=== PATIENT | female | born 1935 | race Hispanic/Latino ===

== ENCOUNTER 2016-09-02 04:11 | Inpatient (IN) | payer MEDICARE, MEDICAID ==
--- NOTE | 2016-09-02 04:18 | C.PDOC ---
History Of Present Illness Patient [facility] for the evaluation of blood in her stool. Patient reports intermittent abdominal pain for the last 2 days. Patient denies any fever, chills, nausea, vomiting, or any other complaints. Time Seen by Provider: 09/02/16 04:17 History Per: Patient History/Exam Limitations: no limitations Onset/Duration Of Symptoms: Days (2), Intermittent Episodes Current Symptoms Are (Timing): Still Present Number Of Bleeding Episodes: Unknown Amount of Blood Loss: Medium Severity: Moderate Pain Scale Rating Of: 4 Quality Of Discomfort: "Pain" Associated Symptoms: Other (Blood in stool). denies: Nausea, Vomiting Modifying Factors: None Recent travel outside of the [place]: No Past Medical History Reviewed: Historical Data, Nursing Documentation, Vital Signs Vital Signs: Last Vital Signs Temp 98.8 F 09/02/16 04:19 Pulse 94 H 09/02/16 06:12 Resp 16 09/02/16 06:12 BP 124/78 09/02/16 06:12 Pulse Ox 98 09/02/16 06:12 Family History: States: No Known Family Hx Review Of Systems Constitutional: Negative for: Fever, Chills Cardiovascular: Negative for: Chest Pain Respiratory: Negative for: Shortness of Breath Gastrointestinal: Positive for: Abdominal Pain, Hematochezia. Negative for: Nausea, Vomiting Musculoskeletal: Negative for: Back Pain Skin: Negative for: Rash, Lesions, Jaundice Neurological: Negative for: Headache, Dizziness Psych: Negative for: Anxiety Physical Exam - Physical Exam Appears: Non-toxic Skin: Warm, Dry, Pale Head: Atraumatic Oral Mucosa: Moist Neck: Normal ROM, No Midline Cervical Tenderness, No Paracervical Tenderness, Supple Cardiovascular: Rhythm Regular Respiratory: No Rales, No Rhonchi, No Wheezing Gastrointestinal/Abdominal: Soft, No Tenderness, No Guarding, No Rebound Rectal: Blood Streaked Stool (Bright red blood mixed in with loose stool) Extremity: Normal ROM, No Tenderness, No Calf Tenderness, No Swelling Extremity: Bilateral: Atraumatic Neurological/Psych: Oriented x3, Normal Speech, Normal Cognition Gait: Unable To Assess ED Course And Treatment - Laboratory Results Result Diagrams: 09/02/16 04:52 09/02/16 04:52 ECG: Interpreted By Me, Viewed By Me ECG Rhythm: Sinus Rhythm (98), Nonspecific Changes O2 Sat by Pulse Oximetry: 95 Pulse Ox Interpretation: Normal - Radiology CXR: Interpreted by Me, Viewed By Me CXR Interpretation: Yes: Other (fibrotic changes). No: Infiltrates, Fracture, Pnemothorax Progress Note: blood work, ivf, type and screen, protonix Disposition Counseled Patient/Family Regarding: Studies Performed, Diagnosis - Disposition Disposition Time: 04:18 Condition: FAIR - POA Present On Arrival: Poor Glycemic Control - Clinical Impression Clinical Impression: Rectal bleeding - Scribe Statement The provider has reviewed the documentation as recorded by the Chelyibchapito Aguirre Provider Scribe Attestation: All medical record entries made by the Scribe were at my direction and personally dictated by me. I have reviewed the chart and agree that the record accurately reflects my personal performance of the history, physical exam, medical decision making, and the department course for this patient. I have also personally directed, reviewed, and agree with the discharge instructions and disposition. Physician Patient Turnover Patient Signed Over To: Tiki Tinajero Handoff Comments: pending admision
[2016-09-02] MEDS ORDERED: Sodium Chloride 0.9% 1,000 ML IV ONE (04:43)
[2016-09-02] MEDS ORDERED: Pantoprazole 80 MG in Sodium Chloride 0.9% 100 ML IV STA (04:43)
[2016-09-02 05:00] LABS: BASO % 0.3 % (0.0-2.0); EOS # 0.1 K/uL (0.0-0.7); HEMATOCRIT 41.2 % (34.0-47.0); LYMPH # 3.2 K/uL (1.0-4.3); LYMPH % 29.2 % (20.0-40.0); MEAN CELL VOLUME 88.4 fL (81.0-99.0); MEAN CORPUSCULAR HEMOGLOBIN 29.4 pg (27.0-31.0); MEAN CORPUSCULAR HGB CONC 33.3 g/dL (33.0-37.0); MEAN PLATELET VOLUME 9.3 fL (7.2-11.7); MONO # 1.3 K/uL (0.0-0.8); MONO % 11.3 % (0.0-10.0); RED CELL DISTRIBUTION WIDTH 13.1 % (11.5-14.5); WHITE BLOOD COUNT 11.1 K/uL (4.8-10.8)
[2016-09-02 05:03] LABS: INR 1.1
[2016-09-02 05:05] LABS: CHLORIDE 98 mmol/L (98-107); POTASSIUM 3.6 mmol/L (3.6-5.2); SODIUM 136 mmol/L (132-148)
[2016-09-02 05:07] LABS: BILIRUBIN,TOTAL 0.8 mg/dL (0.2-1.3); GFR AFRICAN-AMERICAN > 60
[2016-09-02 05:08] LABS: ALB/GLOB RATIO 1.2 (1.0-2.1); ALKALINE PHOSPHATASE 70 U/L (38-126); ALT/SGPT 15 U/L (9-52); AST/SGOT 19 U/L (14-36); BLOOD UREA NITROGEN 24 mg/dL (7-17); CALCIUM 9.3 mg/dl (8.6-10.4); CARBON DIOXIDE 25 mmol/L (22-30); GLUCOSE,RANDOM 106 mg/dL (65-105); TOTAL PROTEIN 7.2 g/dL (6.3-8.3)
[2016-09-02] MEDS ORDERED: Sodium Chloride 0.9% 1,000 ML ONE (05:23)
[2016-09-02] MEDS ORDERED: Iohexol 240 (50 ml) PO ONE (07:50)
[2016-09-02] MEDS ORDERED: Iohexol 240 (50 ml) ONE (08:03)
[2016-09-02 08:21] LABS: RBC URINE 12 /hpf (0-3); URINE BACTERIA RARE (<OCC); URINE BILIRUBIN NEGATIVE (NEGATIVE); URINE BLOOD 1+ (NEGATIVE); URINE COLOR Amber (YELLOW); URINE GLUCOSE (UA) NORMAL (Normal); URINE KETONE NEGATIVE (NEGATIVE); URINE LEUKOCYTE ESTERASE TRACE Leu/uL (Negative); URINE PROTEIN NEGATIVE (NEGATIVE); URINE UROBILINOGEN NORMAL mg/dL (0.2-1.0); WBC URINE 7 /hpf (0-5)
--- NOTE | 2016-09-02 08:31 | RAD ---
PROCEDURE: CHEST RADIOGRAPH, 1 VIEW HISTORY: GI Bleeding COMPARISON: None available. FINDINGS: LUNGS: Biapical pleural thickening with upper lobe granulomatous changes. Chronic interstitial lung markings. Small nodular density in the right hilar region may represent vessel on end. PLEURA: No pneumothorax or pleural fluid seen. CARDIOVASCULAR: Normal. OSSEOUS STRUCTURES: No significant abnormalities. VISUALIZED UPPER ABDOMEN: Normal. OTHER FINDINGS: None. IMPRESSION: Biapical pleural thickening with upper lobe granulomatous changes. Chronic interstitial lung markings. Small nodular density in the right hilar region may represent vessel on end.
[2016-09-02 08:35] LABS: HEMATOCRIT 40.7 % (34.0-47.0); MEAN CELL VOLUME 88.8 fL (81.0-99.0); MEAN CORPUSCULAR HEMOGLOBIN 29.3 pg (27.0-31.0); MEAN PLATELET VOLUME 9.1 fL (7.2-11.7); RED CELL DISTRIBUTION WIDTH 13.1 % (11.5-14.5); WHITE BLOOD COUNT 9.9 K/uL (4.8-10.8)
[2016-09-02] MEDS ORDERED: Iodixanol 320 MG/ML 100 ML BOTTLE IV ONE (09:17)
[2016-09-02] MEDS ORDERED: Ciprofloxacin 400mg/200ml D5W 200 ML IV STA (10:22)
--- NOTE | 2016-09-02 10:22 | CT ---
PROCEDURE: CT Abdomen and Pelvis with contrast HISTORY: GI BLEED COMPARISON: None. TECHNIQUE: Contrast dose: 100 mL. Radiation dose: Total exam DLP = 301.44 mGy-cm. This CT exam was performed using one or more of the following dose reduction techniques: Automated exposure control, adjustment of the mA and/or kV according to patient size, and/or use of iterative reconstruction technique. The study is nondiagnostic for evaluation of gastrointestinal hemorrhage due to administration of oral contrast. FINDINGS: LOWER THORAX: 1.5 millimeter nodule in the peripheral aspect of the right middle lobe (series 5, image 9.) The heart is not significantly enlarged. Coronary arterial calcifications noted. No significant pericardial effusion. LIVER: Liver is grossly unremarkable. GALLBLADDER AND BILE DUCTS: Gallbladder is unremarkable. The distal common bile duct measures up to 7.5 millimeters. PANCREAS: No definite pancreatic mass is identified. However, the pancreatic duct is dilated measuring up to 9 millimeters near the pancreatic head. No obvious pancreatic head mass identified in this limited evaluation. SPLEEN: Unremarkable. ADRENALS: Unremarkable. No mass. KIDNEYS AND URETERS: Partially exophytic hypodense structure in the lower pole of the left kidney measuring approximately 2.4 x 2.7 x 2.5 centimeters, likely cyst. Other sub centimeter hypodensities noted in the superior pole of the left kidney which could represent small cysts although they remain suboptimally evaluated. Punctate calcifications in the superior pole of the right kidney could be nonobstructing calculi. VASCULATURE: Scattered atherosclerotic calcification throughout the abdominal aorta and its main branches. No abdominal aortic aneurysm. BOWEL: No bowel obstruction identified. Oral contrast is seen in the distal small bowel at the time of evaluation. Liquid stool is seen in the rectum and in the sigmoid colon. There is marked mural thickening involving the descending, sigmoid core colons. Marked mural thickening also noted involving the rectum. This could represent colitis of infectious or inflammatory etiology. However, ischemic etiologies cannot be entirely excluded. APPENDIX: Normal appendix. PERITONEUM: No significant free fluid. LYMPH NODES: No significantly enlarged lymph nodes identified. BLADDER: Layering high density material seen in the gallbladder likely IV contrast. REPRODUCTIVE: Calcifications in the uterus likely calcified fibroids. No suspicious adnexal lesions. Please note that evaluation of gynecologic organs is not optimal on CT imaging. BONES: Generalized severe osteopenia. Orthopedic hardware in the left hip. OTHER FINDINGS: None. IMPRESSION: Findings suspicious for long segment colitis involving the descending, sigmoid colon and the rectum. Liquid stool seen in the rectum and the sigmoid colon. Colitis could be of infectious/ inflammatory etiologies. However, underlying ischemic etiology cannot be entirely excluded. Presumed cysts in the kidneys. No hydronephrosis or hydroureter. 1.5 centimeter nodule in the right middle lobe likely impacted small airway. Follow-up should be obtained as per guidelines. Guidelines by the Fleischner society (radiology 2005; 237:395-400) suggests that in patients with low risk for lung cancer, nodules from 5 mm to 6 mm in diameter should have follow-up in approximately 12 months. In patients with high-risk, such as those were smokers, follow-up is recommended in 6 months. Patients with a known malignancy or risk for metastases should receive 3 month follow-up. Dilatation of the pancreatic duct near the pancreatic head duct to 9 millimeters. Although no definite pancreatic head mass identified. , please note that this is a suboptimal evaluation of pancreatic masses. Follow-up with MRCP/ERCP should be obtained. Discussed with Dr. Tinajero at approximately 10:25 a.m. on 09/02/2016.
[2016-09-02] MEDS ORDERED: Ciprofloxacin 400mg/200ml D5W 200 ML IVPB ONE (10:29)
[2016-09-02] MEDS ORDERED: metroNIDAZOLE IV 500 mg/100 ml 100 ML IV SCH (10:30)
[2016-09-02] MEDS ORDERED: metroNIDAZOLE IV 500 mg/100 ml 100 ML ONE (10:30)
[2016-09-02 10:53] LABS: VENOUS BLOOD GAS BASE EXCESS 0.3 mmol/L (0.0-2.0); VENOUS BLOOD GAS PCO2 42 mmHg (40-60); VENOUS BLOOD PH 7.39 (7.32-7.43)
--- NOTE | 2016-09-02 12:14 | CP.PCM.CON ---
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 The patient is alert to person but not time/place. Her account of events is consistent with [place] records. The patient states that she suddenly developed rectal bleeding with stooling 2 days prior to admission. Since, she has had frequent loose/liquid stools that are either dark black or maroon. She denies any abdominal pain at this time but previously did have some left sided discomfort and a CT A/P did reveal left sided colitis. She had a nearly identical presentation to [facility] in 04/2016 and had flexible sigmoidoscopy in house along with outpatient full colonoscopy off of Eliquis. Both revealed diverticulosis and internal hemorrhoids. Currently, she denies any nausea, vomiting, dizziness, lightheadedness, palpitations. PMHx: See HPI PSHx: Right AKA, right femoral artery embolectomy, left hip closed reduction with fixation FHx: Discussed with patient and she denies any family history Social: Denies tobacco, EtOH or illicit drug use Endo: 04/29/16 - Flex Sig - Diverticulosis, rectal erythema - Bx no performed as patient on Eliquis 05/06/16 - Colonoscopy - Diverticulosis, internal hemorrhoids - Acute inflammation/edema of rectum on path Review of Systems - Constitutional Constitutional: absent: Anorexia, Chills, Fever - EENT Eyes: absent: Change in Vision Nose/Mouth/Throat: absent: Sore Throat - Cardiovascular Cardiovascular: absent: Chest Pain at Rest, Dyspnea, Edema - Respiratory Respiratory: absent: Cough, Dyspnea, Excessive Mucous Production - Gastrointestinal Gastrointestinal: Hematochezia, Loose Stools, Melena. absent: Abdominal Pain, Constipation, Cramping, Diarrhea, Dysphagia, Heartburn, Hematemesis, Nausea, Odynophagia, Vomiting - Genitourinary Genitourinary: absent: Dysuria, Urinary Frequency, Urinary Urgency - Musculoskeletal Musculoskeletal: absent: Back Pain, Neck Pain - Integumentary Integumentary: absent: New Lesions, Rash - Neurological Neurological: absent: Dizziness, Numbness, Focal Weakness - Psychiatric Psychiatric: absent: Anxiety, Depression - Endocrine Endocrine: absent: Polydipsia, Polyphagia, Polyuria - Hematologic/Lymphatic Hematologic: absent: Easy Bleeding, Easy Bruising, Lymphadenopathy Past Patient History - Past Social History Smoking Status: Never Smoked - CARDIAC Hx Peripheral Vascular Disease: Yes - GASTROINTESTINAL Hx Gastroesophageal Reflux: Yes Other/Comment: Ulcerative Colitis - PSYCHIATRIC Hx Substance Use: No - SURGICAL HISTORY Hx Amputation: Yes (Right AKA) Meds Allergies/Adverse Reactions: Allergies Allergy/AdvReac Type Severity Reaction Status Date / Time No Known Allergies Allergy Unverified 09/02/16 04:28 - Medications Medications: Current Medications Sodium Chloride (Sodium Chloride 0.9%) 1,000 mls @ 100 mls/hr IV .Q10H ONE Stop: 09/02/16 14:42 Last Admin: 09/02/16 05:30 Dose: 100 mls/hr Metronidazole (Flagyl) 100 mls @ 100 mls/hr IV STAT JAIR Physical Exam - Constitutional Appears: Non-toxic, No Acute Distress - Eye Exam Eye Exam: EOMI, PERRL - ENT Exam ENT Exam: Mucous Membranes Moist - Respiratory Exam Respiratory Exam: Clear to Auscultation Bilateral. absent: Rales, Rhonchi, Wheezes - Cardiovascular Exam Cardiovascular Exam: RRR, +S1, +S2 - GI/Abdominal Exam GI & Abdominal Exam: Distended, Normal Bowel Sounds, Soft, Tenderness (left sided). absent: Firm, Guarding, Organomegaly, Rigid - Rectal Exam Rectal Exam: Black Stool, Bloody Stool, Hemorrhoids (internal/external). absent : NORMAL INSPECTION Additional comments: significant liquid melanotic stool with some fresh blood - Extremities Exam Extremities exam: Negative for: pedal edema Additional comments: Right AKA - Neurological Exam Neurological exam: Alert - Psychiatric Exam Psychiatric exam: Normal Affect, Normal Mood - Skin Skin Exam: Dry, Warm Results - Vital Signs Recent Vital Signs: Last Vital Signs Temp 97.8 F 09/02/16 09:49 Pulse 85 09/02/16 09:49 Resp 16 09/02/16 09:49 BP 109/67 09/02/16 09:49 Pulse Ox 95 09/02/16 09:49 - Labs Result Diagrams: 09/02/16 08:18 09/02/16 04:52 Labs: Laboratory Results - last 24 hr 09/02/16 10:48 pO2 45 VBG pH 7.39 VBG pCO2 42 VBG HCO3 24.7 VBG Total CO2 26.7 VBG O2 Sat (Calc) 87.3 H VBG Base Excess 0.3 VBG Potassium 3.4 L Sodium 135.0 Chloride 103.0 Glucose 90 Lactate 2.3 H Venous Blood Potassium 3.4 L Assessment & Plan - Assessment and Plan (Free Text) Assessment: Patient is an 80yo female with 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 -Acute GI hemorrhage/rectal bleeding - concern for diverticular bleeding/AVM/ ischemic colitis -Acute left sided colitis - DDx includes infectious, ischemic -Prior ischemic leg injury on Eliquis -HTN Plan: -2 units PRBCs placed on hold -Check lactate level stat -Start Ceftriaxone 1g IV QD, Flagyl 500mg IV Q8H -CT A/P reviewed -CDiff tox/Ag negative -Hold Epiquis, will require reevaluation as to whether or not to resume this medication as this is the second episode of GI hemorrhage -Continue supportive care, IVF/transfuse as needed -Check CBC Q8H -Continue to monitor on telemetry - Date & Time Date: 09/02/16 Time: 12:15 <Felice Peña - Last Filed: 09/06/16 08:57> Results - Vital Signs Recent Vital Signs: Last Vital Signs Temp 98.1 F 09/05/16 15:05 Pulse 96 H 09/05/16 15:05 Resp 19 09/05/16 15:05 BP 129/75 09/05/16 15:05 Pulse Ox 96 09/05/16 15:05 - Labs Result Diagrams: 09/04/16 10:50 09/05/16 13:07 Labs: Laboratory Results - last 24 hr 09/05/16 13:07 Sodium 140 Potassium 2.6 L Chloride 103 Carbon Dioxide 24 Anion Gap 16 BUN 3 L Creatinine 0.4 L Est GFR ( Amer) > 60 Est GFR (Non-Af Amer) > 60 Random Glucose 76 Calcium 8.3 L Total Bilirubin 0.3 AST 18 ALT 20 Alkaline Phosphatase 64 Total Protein 6.2 L Albumin 3.3 L Globulin 2.9 Albumin/Globulin Ratio 1.1 Attending/Attestation - Attestation I have personally seen and examined this patient.: Yes I have fully participated in the care of the patient.: Yes I have reviewed all pertinent clinical information: Yes Notes (Text): 09/06/16 08:50 I have seen and examined patient with GI fellow on 09/02/16. This note is being dictated at a later date due to a problem with electronic medical records. Agree with above documentation with the following additions. In brief, this is an 81 year old female with history of PVD s/p right AKA, DVT on eliquis, HTN, arthritis who presents from skilled nursing with complaint of sudden onset rectal bleeding and abdominal pain. She describes a LLQ 5/10 intensity sharp abdominal pain that is non-radiating and worsened by movement which began 2 days ago. This was followed by the development of hematochezia. She denies associated nausea, vomiting, fever/chills, or weight loss. She did experience a similar episode in April 2016 and was treated for colitis of unclear etiology. Subsequent colonoscopy showed diverticulosis and internal hemorrhoids. DVT on Eliquis (held) PVD s/p right sided AKA HTN Arthritis Acute rectal bleeding, severe requiring ICU admission and posing threat to patient life given ongoing Eliquis use and risk of rebleeding CT imaging reviewed by me showing left sided colitis, possibly ischemic in nature given clinical presentation - Continue to monitor H/H, type/cross blood - Obtain serum lactate level - Begin empiric antibiotic therapy - Await results of stool studies and blood culture results - Continue with IVF hydration, will continue to monitor patient clinical course
[2016-09-02] MEDS ORDERED: metroNIDAZOLE IV 500 mg/100 ml 100 ML IVPB SCH (14:00)
[2016-09-02 16:21] LABS: HEMATOCRIT 36.4 % (34.0-47.0); MEAN CELL VOLUME 88.6 fL (81.0-99.0); MEAN CORPUSCULAR HEMOGLOBIN 29.3 pg (27.0-31.0); MEAN CORPUSCULAR HGB CONC 33.1 g/dL (33.0-37.0); MEAN PLATELET VOLUME 9.1 fL (7.2-11.7); RED CELL DISTRIBUTION WIDTH 12.8 % (11.5-14.5); WHITE BLOOD COUNT 11.1 K/uL (4.8-10.8)
[2016-09-02] MEDS: metroNIDAZOLE IV 500 mg/100 ml 100 ML IVPB SCH (18:19)
[2016-09-02] MEDS: Sodium Chloride 0.9% 1,000 ML IV SCH (18:20)
--- NOTE | 2016-09-02 19:36 | HP ---
HISTORY OF PRESENT ILLNESS: I know the patient very, very well from multiple house calls for many, many years. Also, taking care of her at [facility] where she now a permanent resident. Recently, she had blood in her stool. She has a history of hemorrhoids, although we feel this might not be hemorrhoids at this time. 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 She had also fallen in the past and had right hip ORIF from a fall at home of the left leg. She has osteoarthritis, hypertension. She had bouts of colitis. She has had rectal bleeding on and off, which was felt to be hemorrhoids. Over the past 2 days, she has been having some bright red blood in the stools and on the bed. We sent her to the Emergency Room where she had a very large, loose stool of blood. She ended up having a CAT scan and now she is in the intensive care unit. CAT scan did show some left-sided colitis. In 2015, she had a flexible sig. She has also been with internal hemorrhoids. She is presently comfortable, no abdominal pain. PAST MEDICAL HISTORY: She has a history of a right above-knee amputation, right femoral artery embolectomy, left hip closed reduction with fixation. FAMILY HISTORY: No real family history. SOCIAL HISTORY: No smoking, no drinking, no drugs. ALLERGIES: SHE HAS ALLERGIES TO LOVENOX AND HEPARIN. REVIEW OF SYSTEMS: No changes in vision. No changes in hearing, although we have to talk loud to talk to her. No sore throat. No neck pain, no chest pain , no palpitations, no shortness of breath, no coughing, no mucus. Mild abdominal discomfort. No nausea, vomiting. No constipation. She is having blood in the stools and they have been loose. No problems urinating. No back pain. No leg pain. Skin for the most part is intact. No acute rash. No dizziness or headaches or numbness. No anxiety or depression, but she is very excitable. No increase in urination, no easy bleeding at this time or bruising or lymphadenopathy to appreciate. History of ulcerative colitis, right above- knee amputation. No known drug allergies except for LOVENOX AND HEPARIN REACTION. MEDICATIONS: She is currently on IV fluids and Flagyl IV. PHYSICAL EXAMINATION: VITAL SIGNS: She has a 97.8 temp, 85 pulse, 16 respiratory rate, 109/67 blood pressure, 95% O2 sat on room air. HEENT: Head is atraumatic, normocephalic. She is nontoxic. She is comfortable , alert and oriented x 3. Extraocular muscles and pupils equal, reactive to light and accommodation. Throat is moist, no erythema. NECK: Supple, no JVD. HEART: Regular rate. Normal S1, S2. LUNGS: Decreased breath sounds but clear to auscultation bilaterally. No rales , rhonchi or wheezes. ABDOMEN: Soft, nontender. Positive bowel sounds. Maybe mildly distended. EXTREMITIES: She has a right above-knee amputation. Left has no edema. SKIN: For the most part is intact. No palpable lymphadenopathy appreciated. Skin is warm and dry. ENDOCRINE: Thyroid is midline. NEUROLOGIC: Cranial nerves II-XII grossly intact. LABORATORY DATA: She had a bunch of labs done. She has 11.1 white count, 12 hemoglobin, 12.8 RDW, 244 platelets; that was the last CBC. The first CBC: The hemoglobin was 13.7 0.7 so far with the bleeding but she is also on IV fluids. INR is 1.1. The last pH was 7.39. She has a 136 sodium, potassium 3.6 , BUN 24, creatinine 0.6. She is on IV fluids. GFR is greater than 60. Sugar is 106. Lactic acid is 0.7. Calcium is 9.3. Total bilirubin is 0.8. AST is 19 , ALT is 15, alkaline phosphatase 70. Total protein 7.2, albumin is 4. Urine is 1+ blood but otherwise rare bacteria. Stools positive, but we knew that. C. diff toxin is negative. On reports, she has a chest x-ray which showed biapical pleural thickening with upper lobe granulomatous changes, chronic interstitial lung markings, small nodular density in the right hilar region, may represent vessel on end. She also had an abdominal pelvic CAT scan. She has a finding suspicious for longstanding colitis involving the descending and sigmoid colon and the rectum. Liquid stool seen in the rectum and the sigmoid colon. Colitis could be of infectious inflammatory etiologies. However, underlying ischemic etiology cannot be entirely excluded. Presumed cysts in the kidneys, no hydronephrosis or hydroureter, a 1.5 cm nodule in the right middle lobe, likely impacted small airway, dilatation of the pancreatic duct, near the pancreatic head duct to 9 mm. ASSESSMENT AND PLAN: She is being admitted to the intensive care unit. She is having multiple CBCs. She has 2 units of packed red blood cells on hold. She is on IV fluids. She is on metronidazole IV. She is on Protonix IV, ceftriaxone IV, IV fluids, Zofran as needed. She has a consult with GI and pulmonary. We will check her labs tomorrow. We will continue with aggressive treatment and care. She is here for colitis, gastrointestinal bleed. Ashvin Bryson DO cc: [id number] TT: 09/02/2016 19:35:45 ln MTDD
[2016-09-03] MEDS: metroNIDAZOLE IV 500 mg/100 ml 100 ML IVPB SCH ×3 (02:23→17:45)
[2016-09-03 06:26] LABS: HEMATOCRIT 34.7 % (34.0-47.0); MEAN CELL VOLUME 89.6 fL (81.0-99.0); MEAN CORPUSCULAR HEMOGLOBIN 29.4 pg (27.0-31.0); MEAN CORPUSCULAR HGB CONC 32.8 g/dL (33.0-37.0); WHITE BLOOD COUNT 9.6 K/uL (4.8-10.8)
[2016-09-03 06:43] LABS: CHLORIDE 101 mmol/L (98-107); POTASSIUM 3.4 mmol/L (3.6-5.2); SODIUM 136 mmol/L (132-148)
[2016-09-03 06:45] LABS: ALB/GLOB RATIO 1.2 (1.0-2.1); ALKALINE PHOSPHATASE 56 U/L (38-126); AST/SGOT 15 U/L (14-36); BILIRUBIN,TOTAL 0.4 mg/dL (0.2-1.3); CARBON DIOXIDE 19 mmol/L (22-30); GFR AFRICAN-AMERICAN > 60; TOTAL PROTEIN 5.7 g/dL (6.3-8.3)
[2016-09-03 06:46] LABS: ALT/SGPT 9 U/L (9-52); BLOOD UREA NITROGEN 17 mg/dL (7-17); CALCIUM 7.7 mg/dl (8.6-10.4); GLUCOSE,RANDOM 61 mg/dL (65-105); MAGNESIUM 1.8 mg/dL (1.6-2.3); PHOSPHOROUS 3.5 mg/dL (2.5-4.5)
--- NOTE | 2016-09-03 08:14 | CP.PCM.PN ---
<Chavez Lugo - Last Filed: 09/03/16 09:03> Subjective - Date & Time of Evaluation Date of Evaluation: 09/03/16 Time of Evaluation: 07:50 - Subjective Subjective: PGY4 GI Fellow Progress Note Patient seen and examined bedside this morning. The patient's only complaint is thirst. She denies any issues overnight and denies any bloody BM. Does admit to one episode of incontinence with liquid stool. Discussed case with nursing staff , pt incontinent of urine and also one small episode of brown/maroon stool last night. Patient denies any abdominal pain at this time. 12 system ROS performed and negative except where stated. Objective - Vital Signs/Intake and Output Vital Signs (last 24 hours): Temp Pulse Resp BP Pulse Ox 97.9 F 81 16 93/53 L 95 09/03/16 04:00 09/03/16 07:00 09/03/16 07:00 09/03/16 07:00 09/03/16 07:00 Intake and Output: 09/03/16 09/03/16 06:59 18:59 Intake Total 600 40 Output Total 0 0 Balance 600 40 - Medications Medications: Current Medications Ceftriaxone Sodium 1 gm/ (Sodium Chloride) 100 mls @ 100 mls/hr IVPB DAILY@ 1400 [facility] Last Admin: 09/02/16 15:00 Dose: 100 mls/hr Metronidazole (Flagyl) 100 mls @ 100 mls/hr IVPB Q8H [facility] Last Admin: 09/03/16 02:23 Dose: 100 mls/hr Sodium Chloride (Sodium Chloride 0.9%) 1,000 mls @ 40 mls/hr IV .Q24H [facility] Last Admin: 09/02/16 18:20 Dose: 40 mls/hr Pantoprazole Sodium (Protonix Inj) 40 mg IVP DAILY [facility] Last Admin: 09/02/16 15:00 Dose: 40 mg - Labs Labs: 09/03/16 06:19 09/03/16 06:19 PT 12.2 SECONDS (9.7-12.2) 09/02/16 04:52 INR 1.1 09/02/16 04:52 APTT 32 SECONDS (21-34) 09/02/16 04:52 - Constitutional Appears: Non-toxic, No Acute Distress - Eye Exam Eye Exam: EOMI, PERRL - ENT Exam ENT Exam: Mucous Membranes Dry - Respiratory Exam Respiratory Exam: Clear to Ausculation Bilateral. absent: Rales, Rhonchi, Wheezes - Cardiovascular Exam Cardiovascular Exam: RRR, +S1, +S2 - GI/Abdominal Exam GI & Abdominal Exam: Soft, Normal Bowel Sounds. 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 -Acute GI hemorrhage/rectal bleeding - concern for diverticular bleeding/AVM/ ischemic colitis -Acute left sided colitis - DDx includes infectious, ischemic -Prior ischemic leg injury on Eliquis -HTN -Dilated PD on CT A/P Plan: -H/H still downtrending, one episode of melena overnight, pt hypotensive this AM -Recheck CBC at 1400, if still downtrending, recommend transfusion 1 unit PRBC -Continue conservative therapy - IV resuscitation, ABX, serial examination, transfusion as needed -Start liquid diet -Lactate level was unremarkable - more likely related to diverticulosis, AVM, hemorrhoidal bleeding -Ceftriaxone 1g IV QD, Flagyl 500mg IV Q8H -Hold Eliquis, benefit/risk to be evaluated in deciding reinitiation -Pt for CT chest today give h/o pulmonary nodules -CT pancreatic protocol given PD dilation on initial CT which was not present on prior imaging in April 2016 -Continue to monitor on telemetry <Felice Peña - Last Filed: 09/03/16 09:12> Objective - Vital Signs/Intake and Output Vital Signs (last 24 hours): Temp Pulse Resp BP Pulse Ox 97.9 F 81 16 93/53 L 95 09/03/16 04:00 09/03/16 07:00 09/03/16 07:00 09/03/16 07:00 09/03/16 07:00 Intake and Output: 09/03/16 09/03/16 06:59 18:59 Intake Total 600 40 Output Total 0 0 Balance 600 40 - Medications Medications: Current Medications Ceftriaxone Sodium 1 gm/ (Sodium Chloride) 100 mls @ 100 mls/hr IVPB DAILY@ 1400 [facility] Last Admin: 09/02/16 15:00 Dose: 100 mls/hr Metronidazole (Flagyl) 100 mls @ 100 mls/hr IVPB Q8H [facility] Last Admin: 09/03/16 02:23 Dose: 100 mls/hr Sodium Chloride (Sodium Chloride 0.9%) 1,000 mls @ 40 mls/hr IV .Q24H [facility] Last Admin: 09/02/16 18:20 Dose: 40 mls/hr Potassium Chloride (Potassium Chloride 10 Meq/100 Ml) 100 mls @ 100 mls/hr IVPB ONCE ONE Stop: 09/03/16 10:01 Pantoprazole Sodium (Protonix Inj) 40 mg IVP DAILY [facility] Last Admin: 09/02/16 15:00 Dose: 40 mg - Labs Labs: 09/03/16 06:19 09/03/16 06:19 PT 12.2 SECONDS (9.7-12.2) 09/02/16 04:52 INR 1.1 09/02/16 04:52 APTT 32 SECONDS (21-34) 09/02/16 04:52 Attending/Attestation - Attestation I have personally seen and examined this patient.: Yes I have fully participated in the care of the patient.: Yes I have reviewed all pertinent clinical information, including history, physical exam and plan: Yes Notes (Text): 09/03/16 09:09 I have seen and examined patient with GI fellow. No acute events overnight, she is seen resting in bed comfortably. According to nursing staff, patient with one small maroon colored bowel movement overnight. She denies abdominal pain, nausea, vomiting. She is asking for her diet to be advanced. Review of vitals from this morning show hypotension and tachycardia. RLE DVT on eliquis PVD s/p AKA HTN Rectal bleeding, colitis Dilated PD seen on CT imaging - Clear liquid diet as tolerated - H/H stable, continue to monitor - Continue with antibiotic therapy given suspected ischemic colitis, though serum lactate normal - Obtain CT pancreatic protocol given dilated PD seen on prior imaging - Will continue to monitor patient clinical course
[2016-09-03] MEDS ORDERED: Potassium Chloride 10 mEq 100 ML IVPB ONE (09:15)
--- NOTE | 2016-09-03 09:22 | PN ---
DATE: 09/03/2016 I saw the patient in the intensive care unit at [facility]. She is resting comfortably in bed. She is now going to start clear fluids this morning, still a little bit of blood, but not as bad. T he stool is becoming darker, not bright red. She is on Rocephin and Flagyl, Protonix, and IV fluids. She 8is in no pain, no chest pain or shortness of breath, no abdominal pain and she wants to eat. She is thirsty. PHYSICAL EXAMINATION: VITAL SIGNS: 97.8 temp, 81 pulse, 93/53 blood pressure, 16 respiratory rate, 95% O2 sat on room air. HEENT: Head is atraumatic, normocephalic. Throat is moist. NECK: Supple. HEART: Regular rate. LUNGS: Decreased breath sounds, but clear. ABDOMEN: Soft, nontender, positive bowel sounds. No guarding, no rebound. EXTREMITIES: She has a right AKA. Left leg has no edema. LABORATORY DATA: She has a 9.6 white count, 11.4 hemoglobin, 34.7 hematocrit with 228 platelets. Angel uriarte has a 136 sodium, potassium 3.4. I will give her some potassium this morning. BUN 17, creatinine 0.5, GFR is greater than 60, sugar is 61, calcium is 7.7, phosphorus 3.5, magnesium 1.8, total bili i s 0.4, AST is 15, ALT is 9, alk phos 56, total protein is 5.7, albumin is 3.1. Urine is clear. Nega tikasia C. diff. She is being seen by gastroenterology. I discussed it with them this morning. They are increasing h er diet. They feel that probably by Monday she will be able to be discharged. Today is Monday dep ending on how she does and if there is any more bleeding. I will give her a K rider today. I w8ill check her labs tomorrow, see if we can get her out of bed to chair. Get physical therapy involved an d hopefully, she will continue to improve. Ashvin Bryson DO cc: [id number] TT: 09/03/2016 09:21:58 Confirmation # [id number] Dictation # [id number] tn
[2016-09-03] MEDS ORDERED: Iodixanol 320 MG/ML 100 ML BOTTLE IV ONE (09:26)
--- NOTE | 2016-09-03 13:04 | CT ---
PROCEDURE: CT Chest without contrast HISTORY: lung nodule COMPARISON: Comparison made with CT scan of the abdomen pelvis 09/02/2016 which imaged both lung bases. . TECHNIQUE: Contiguous axial images were obtained through the chest without intravenous contrast enhancement. Sagittal and coronal reconstructions were performed. Radiation dose (DLP): 191.75 mGy-cm. This CT exam was performed using one or more of the following dose reduction techniques: Automated exposure control, adjustment of the mA and/or kV according to patient size, and/or use of iterative reconstruction technique. FINDINGS: LUNGS: Mild bibasilar atelectasis both posterior lung jang . No effusion or pneumothorax. Nodular scarring changes felt be present left anteromedial upper lung field bordering the pleural and mediastinal surfaces. Tiny approximately 1.5 mm nodule lateral aspect right middle lobe unchanged. 4 mm nodule left upper lobe seen on axial series 4, image 41 MEDIASTINUM: Unremarkable thoracic aorta. No aneurysm. Main pulmonary artery unremarkable. No vascular congestion. No lymphadenopathy. PLEURA: As above BONES: minimal multilevel degenerative spondylosis of the thoracic spine UPPER ABDOMEN: Seen concurrent CT scan abdomen pelvisGrossly unremarkable. OTHER FINDINGS: None. IMPRESSION: 4 mm nodule of left upper lobe with 1.5 mm nodule right middle lobe. Followup 6 -12 months could be performed in high risk patients
--- NOTE | 2016-09-03 18:42 | CT ---
PROCEDURE: CT Abdomen and pelvis dated 09/03/2016 HISTORY: Pancreatic ductal and dilation, r/o mass lesion/obstruction. COMPARISON: Comparison made with prior CT scan of the abdomen pelvis 09/02/2016. TECHNIQUE: Contiguous helical/transaxial sections of the abdomen and pelvis performed in standard fashion before and following intravenous injection of approximately 100 cc Visipaque 320 contrast material. Additional axial delayed images obtained. Radiation dose: Total exam DLP = 1244.05 mGy-cm. FINDINGS: Findings: Note that the evaluation at the level of the pancreatic head is quite limited due to motion artifact as well as residual oral contrast material within the large bowel which was administered for CT scan of the abdomen and pelvis 09/02/2026. Re- demonstrated is mild dilatation of the pancreatic duct at the level of the pancreatic head however no definitive masses are identified. The pancreas appears somewhat atrophic. Consider followup MRCP -ERCP for further evaluation if necessary. No other significant changes have taken place. Please refer to prior CT scan of the abdomen pelvis for additional pertinent findings. Impression: Limited study as above. No definitive evidence of pancreatic mass seen recommend followup ERCP/MRCP No other significant changes.
[2016-09-03] MEDS: Sodium Chloride 0.9% 1,000 ML IV SCH (20:08)
[2016-09-04] MEDS: metroNIDAZOLE IV 500 mg/100 ml 100 ML IVPB SCH ×4 (02:17→20:26)
--- NOTE | 2016-09-04 09:25 | CP.PCM.PN ---
<OsiriselsycalosChavez - Last Filed: 09/04/16 09:21> Subjective - Date & Time of Evaluation Date of Evaluation: 09/04/16 Time of Evaluation: 08:30 - Subjective Subjective: PGY4 GI Fellow Progress Note Patient seen and examined bedside this morning. The patient denies any complaints at this time and states she is eating well. No abdominal pain, nausea vomiting. Has not passed stool since last night, denies blood. Discussed with nursing, no hematochezia/melena noted. Patient refusing blood work this morning, will discuss with her. 12 system ROS performed and negative except where stated. Objective - Vital Signs/Intake and Output Vital Signs (last 24 hours): Temp Pulse Resp BP Pulse Ox 98.3 F 84 20 119/70 96 09/04/16 08:14 09/04/16 08:14 09/04/16 08:14 09/04/16 08:14 09/04/16 08:14 Intake and Output: 09/04/16 09/04/16 06:59 18:59 Intake Total 240 Balance 240 - Medications Medications: Current Medications Ceftriaxone Sodium 1 gm/ (Sodium Chloride) 100 mls @ 100 mls/hr IVPB DAILY@ 1400 [facility] Last Admin: 09/03/16 15:18 Dose: 100 mls/hr Metronidazole (Flagyl) 100 mls @ 100 mls/hr IVPB Q8H [facility] Last Admin: 09/04/16 02:17 Dose: 100 mls/hr Sodium Chloride (Sodium Chloride 0.9%) 1,000 mls @ 40 mls/hr IV .Q24H [facility] Last Admin: 09/03/16 20:08 Dose: 40 mls/hr Pantoprazole Sodium (Protonix Inj) 40 mg IVP DAILY [facility] Last Admin: 09/03/16 09:10 Dose: 40 mg - Labs Labs: 09/03/16 06:19 09/03/16 06:19 PT 12.2 SECONDS (9.7-12.2) 09/02/16 04:52 INR 1.1 09/02/16 04:52 APTT 32 SECONDS (21-34) 09/02/16 04:52 - Constitutional Appears: Non-toxic, No Acute Distress - Eye Exam Eye Exam: EOMI, PERRL - ENT Exam ENT Exam: Mucous Membranes Moist - Respiratory Exam Respiratory Exam: Clear to Ausculation Bilateral. absent: Rales, Rhonchi, Wheezes - Cardiovascular Exam Cardiovascular Exam: RRR, +S1, +S2 - GI/Abdominal Exam GI & Abdominal Exam: Soft, Normal Bowel Sounds. 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 -Acute GI hemorrhage/rectal bleeding - concern for diverticular bleeding/AVM/ ischemic colitis -Acute left sided colitis - DDx includes infectious, ischemic -Prior ischemic leg injury on Eliquis -HTN -Dilated PD without evidence of pancreatic lesions Plan: -Patient refused blood draws last night and today; discussed with her and reenforced importance of this and she has agreed to perform this morning, will await results -CT pancreas reviewed, no evidence of pancreatic lesions - recommendation for MRCP, will order for tomorrow -Likely plan for D/C tomorrow pending no abnormal findings on lab work or imaging -Tolerating liquid diet, advanced to full liquids, consider soft diet tomorrow -Ceftriaxone 1g IV QD, Flagyl 500mg IV Q8H for colitis -Hold Eliquis, benefit/risk to be evaluated prior to resuming therapy <Felice Peña - Last Filed: 09/04/16 09:36> Objective - Vital Signs/Intake and Output Vital Signs (last 24 hours): Temp Pulse Resp BP Pulse Ox 98.3 F 84 20 119/70 96 09/04/16 08:14 09/04/16 08:14 09/04/16 08:14 09/04/16 08:14 09/04/16 08:14 Intake and Output: 09/04/16 09/04/16 06:59 18:59 Intake Total 240 Balance 240 - Medications Medications: Current Medications Ceftriaxone Sodium 1 gm/ (Sodium Chloride) 100 mls @ 100 mls/hr IVPB DAILY@ 1400 [facility] Last Admin: 09/03/16 15:18 Dose: 100 mls/hr Metronidazole (Flagyl) 100 mls @ 100 mls/hr IVPB Q8H [facility] Last Admin: 09/04/16 02:17 Dose: 100 mls/hr Sodium Chloride (Sodium Chloride 0.9%) 1,000 mls @ 40 mls/hr IV .Q24H [facility] Last Admin: 09/03/16 20:08 Dose: 40 mls/hr Pantoprazole Sodium (Protonix Inj) 40 mg IVP DAILY [facility] Last Admin: 09/03/16 09:10 Dose: 40 mg - Labs Labs: 09/03/16 06:19 09/03/16 06:19 PT 12.2 SECONDS (9.7-12.2) 09/02/16 04:52 INR 1.1 09/02/16 04:52 APTT 32 SECONDS (21-34) 09/02/16 04:52 Attending/Attestation - Attestation I have personally seen and examined this patient.: Yes I have fully participated in the care of the patient.: Yes I have reviewed all pertinent clinical information, including history, physical exam and plan: Yes Notes (Text): 09/04/16 09:32 I have seen and examined patient with GI fellow. No acute events overnight, she is seen resting in bed and appears comfortable. She denies abdominal pain, nausea, vomiting, fever/chills. No bowel movements overnight, she is tolerating PO liquids without difficulty. Review of vitals from today are normal. RLE DVT on eliquis (held) PVD s/p right AKA HTN Rectal bleeding, colitis (possibly ischemic given presentation) Dilated pancreatic duct - CT imaging reviewed by me showing no evidence of focal pancreatic lesion, though PD remains dilated with pancreatic atrophy - Continue with antibiotic therapy - H/H stable without further episodes of rectal bleeding, continue to monitor - Full liquid diet as tolerated - Obtain MRCP for further evaluation of dilated PD - Given second episode of rectal bleeding within last 4 months, will need to discuss with PMD regarding need for ongoing Eliquis - Will continue to monitor patient clinical course
--- NOTE | 2016-09-04 10:17 | PN ---
DATE: 09/04/2016 She is here at [facility] resting in bed. She is alert, doing much better, stronger. She is ea ting. She is on a liquid diet. I am going to increase the diet. PHYSICAL EXAMINATION: VITAL SIGNS: Temp 97.2, 90 pulse, 102/66 blood pressure, 20 respiratory rate, 95% O2 sat on room air . HEENT: Head is atraumatic, normocephalic. HEART: Regular rate. LUNGS: Clear to auscultation. ABDOMEN: Soft, nontender, positive bowel sounds. EXTREMITIES: No edema. MEDICATIONS: She is currently on Rocephin, Flagyl, Protonix, and IV fluids. LABORATORY DATA: She has a 9.6 white count, 11.4 hemoglobin, 228 platelets. The labs this morning a re not back yet. Sodium 136. Potassium is 3.4. I will have to see what the potassium is. GFR is g reater than 60. Total bili is 0.4. AST is 15, ALT is 9. I am hoping to increase the diet today and discharge her tomorrow back to [facility] for further care . That is where she lives permanently. I will increase the diet, as per GI. We will check her labs tomorrow, and hopefully tomorrow, Monday, we will get her back to [facility] to continue treatment a nd care. The patient is here for colitis, GI. Ashvin Bryson DO cc: [id number] TT: 09/04/2016 10:17:28 Confirmation # [id number] Dictation # [id number]
[2016-09-04 10:54] LABS: HEMATOCRIT 32.7 % (34.0-47.0); MEAN CELL VOLUME 88.6 fL (81.0-99.0); MEAN CORPUSCULAR HGB CONC 32.7 g/dL (33.0-37.0); MEAN PLATELET VOLUME 8.4 fL (7.2-11.7); RED CELL DISTRIBUTION WIDTH 12.7 % (11.5-14.5); WHITE BLOOD COUNT 8.5 K/uL (4.8-10.8)
[2016-09-04 11:06] LABS: CHLORIDE 102 mmol/L (98-107); POTASSIUM 2.9 mmol/L (3.6-5.2); SODIUM 136 mmol/L (132-148)
[2016-09-04 11:08] LABS: AST/SGOT 17 U/L (14-36); BILIRUBIN,TOTAL 0.2 mg/dL (0.2-1.3); CARBON DIOXIDE 23 mmol/L (22-30); GFR AFRICAN-AMERICAN > 60
[2016-09-04 11:09] LABS: ALB/GLOB RATIO 1.1 (1.0-2.1); ALKALINE PHOSPHATASE 55 U/L (38-126); ALT/SGPT 24 U/L (9-52); BLOOD UREA NITROGEN 7 mg/dL (7-17); CALCIUM 7.9 mg/dl (8.6-10.4); GLUCOSE,RANDOM 68 mg/dL (65-105); TOTAL PROTEIN 5.5 g/dL (6.3-8.3)
[2016-09-04] MEDS: Sodium Chloride 0.9% 1,000 ML IV SCH (15:12)
[2016-09-04] MEDS ORDERED: Potassium Chloride 10 mEq 100 ML IVPB ONE (16:30)
[2016-09-04] MEDS: Potassium Chloride 10 mEq 100 ML IVPB SCH ×2 (17:00→18:49)
[2016-09-05] MEDS: metroNIDAZOLE IV 500 mg/100 ml 100 ML IVPB SCH ×2 (02:45→11:47)
--- NOTE | 2016-09-05 08:09 | DS ---
I see her very well in the bed today. She is very alert, very talkative, comfortable. She is looking for ice cold water. She is hungry. She is currently on IV Flagyl, I will add potassium, Protonix, Rocephin and IV fluids. She will stay on the medication for 5 more days IV at the [facility]. PHYSICAL EXAMINATION: VITAL SIGNS: Temp 98, 82 pulse, 106/blood pressure, 20 respiratory rate, 95% O2 sat on room air. HEENT: Head is atraumatic, normocephalic. Throat is moist. NECK: Supple. HEART: Regular rate. LUNGS: Clear to auscultation. ABDOMEN: Soft, nontender, positive bowel sounds, no guarding, no rebound, no CVA tenderness. No more blood in the bowels. EXTREMITIES: She has a right AKA and the left leg has no edema. She has a white count 8.5, hemoglobin 10.7, hematocrit 32.7, platelets are 212. Sodium 136, potassium 2.9 yesterday. It was replaced. Waiting for labs from this morning. She should be able to go. I put her on potassium p.o. daily. We will follow the potassium at [place]. Sugar is 68, calcium 7.9, total bili is 0.7. She was here for colitis and also gastrointestinal bleed. Hopefully, she will be able to go back to [place] today where she lives permanently, 5 more days of IV antibiotics. I increased her diet to regular. I know it is okay with GI to send her back. She is being discharged today to [place], where she lives permanently. Ashvin Bryson DO cc: [id number] TT: 09/05/2016 08:08:49 en MTDD
[2016-09-05 08:19] VITALS: O2SAT 96
--- NOTE | 2016-09-05 08:47 | CP.PCM.PN ---
<OsiriselsyChavez live - Last Filed: 09/05/16 10:16> Subjective - Date & Time of Evaluation Date of Evaluation: 09/05/16 Time of Evaluation: 08:15 - Subjective Subjective: PGY4 GI Fellow Progress Note Patient seen and examined bedside this morning. The patient denies any complaints. Spoke with [facility] staff who did not note any bloody BM in 2 days now. Patient has no abdominal pain, nausea, vomiting, fever, chills. 12 system ROS performed and negative except where stated. Objective - Vital Signs/Intake and Output Vital Signs (last 24 hours): Temp Pulse Resp BP Pulse Ox 97.8 F 80 20 108/66 96 09/05/16 08:16 09/05/16 08:16 09/05/16 08:16 09/05/16 08:16 09/05/16 08:16 Intake and Output: 09/05/16 09/05/16 06:59 18:59 Intake Total 1170 Balance 1170 - Medications Medications: Current Medications Ceftriaxone Sodium 1 gm/ (Sodium Chloride) 100 mls @ 100 mls/hr IVPB DAILY@ 1400 [facility] Last Admin: 09/04/16 14:02 Dose: 100 mls/hr Metronidazole (Flagyl) 100 mls @ 100 mls/hr IVPB Q8H [facility] Last Admin: 09/05/16 02:45 Dose: 100 mls/hr Sodium Chloride (Sodium Chloride 0.9%) 1,000 mls @ 40 mls/hr IV .Q24H [facility] Last Admin: 09/04/16 15:12 Dose: Not Given Pantoprazole Sodium (Protonix Inj) 40 mg IVP DAILY [facility] Last Admin: 09/04/16 10:04 Dose: 40 mg Potassium Chloride (K-Dur 20 Meq Er Tab) 20 meq PO DAILY [facility] - Labs Labs: 09/04/16 10:50 09/04/16 10:50 PT 12.2 SECONDS (9.7-12.2) 09/02/16 04:52 INR 1.1 09/02/16 04:52 APTT 32 SECONDS (21-34) 09/02/16 04:52 - Constitutional Appears: Non-toxic, No Acute Distress - Eye Exam Eye Exam: EOMI, PERRL - ENT Exam ENT Exam: Mucous Membranes Moist - Respiratory Exam Respiratory Exam: Clear to Ausculation Bilateral. absent: Rales, Rhonchi, Wheezes - Cardiovascular Exam Cardiovascular Exam: RRR, +S1, +S2 - GI/Abdominal Exam GI & Abdominal Exam: Soft, Normal Bowel Sounds. 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 -Acute GI hemorrhage/rectal bleeding - concern for diverticular bleeding/AVM, resolved -Acute left sided colitis -Prior ischemic leg injury on Eliquis -HTN -Dilated PD without evidence of pancreatic lesions Plan: -No further episodes of rectal bleeding in 48H -Awaiting MRCP this morning to further evaluate PD per radiology recommendations ; no lesions noted on CT A/P or CT pancreas -Soft diet as tolerated -Ceftriaxone 1g IV QD, Flagyl 500mg IV Q8H for colitis -Hold Eliquis, benefit/risk to be evaluated prior to resuming therapy -Plan for D/C today per primary service <Miko Orlando MD - Last Filed: 09/05/16 12:17> Objective - Vital Signs/Intake and Output Vital Signs (last 24 hours): Temp Pulse Resp BP Pulse Ox 97.8 F 80 20 108/66 96 09/05/16 08:16 09/05/16 08:16 09/05/16 08:16 09/05/16 08:16 09/05/16 08:16 Intake and Output: 09/05/16 09/05/16 06:59 18:59 Intake Total 1170 Balance 1170 - Medications Medications: Current Medications Ceftriaxone Sodium 1 gm/ (Sodium Chloride) 100 mls @ 100 mls/hr IVPB DAILY@ 1400 [facility] Last Admin: 09/04/16 14:02 Dose: 100 mls/hr Metronidazole (Flagyl) 100 mls @ 100 mls/hr IVPB Q8H [facility] Last Admin: 09/05/16 11:47 Dose: 100 mls/hr Sodium Chloride (Sodium Chloride 0.9%) 1,000 mls @ 40 mls/hr IV .Q24H [facility] Last Admin: 09/05/16 11:42 Dose: 40 mls/hr Pantoprazole Sodium (Protonix Inj) 40 mg IVP DAILY [facility] Last Admin: 09/05/16 11:41 Dose: 40 mg Potassium Chloride (K-Dur 20 Meq Er Tab) 20 meq PO DAILY [facility] Last Admin: 09/05/16 11:41 Dose: 20 meq - Labs Labs: 09/04/16 10:50 09/04/16 10:50 PT 12.2 SECONDS (9.7-12.2) 09/02/16 04:52 INR 1.1 09/02/16 04:52 APTT 32 SECONDS (21-34) 09/02/16 04:52 Attending/Attestation - Attestation I have personally seen and examined this patient.: Yes I have fully participated in the care of the patient.: Yes I have reviewed all pertinent clinical information, including history, physical exam and plan: Yes Notes (Text): 09/05/16 12:13 Patient seen and examined with GI fellow on rounds this am. 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 Previous episodes with colonoscopy at [facility] did not reveal ischemic picture. Dilated PD and CBD on CT with contrast. Will schedule for outpatient EUS with Dr Whelan. Soft diet as tolerated. No bleeding episodes since yesterday. To be determined with primary physician risk/benefit of eliquis.
[2016-09-05] MEDS ORDERED: Potassium Chloride 20 mEq ER Tab PO SCH (10:00)
[2016-09-05] MEDS: Sodium Chloride 0.9% 1,000 ML IV SCH (11:42)
--- NOTE | 2016-09-05 11:43 | CARD ---
APPROVED REPORT EKG Measurement Heart [id number] <Conclusion> Normal sinus rhythm Normal ECG
[2016-09-05 13:20] LABS: CHLORIDE 103 mmol/L (98-107); POTASSIUM 2.6 mmol/L (3.6-5.2); SODIUM 140 mmol/L (132-148)
[2016-09-05 13:22] LABS: AST/SGOT 18 U/L (14-36); BILIRUBIN,TOTAL 0.3 mg/dL (0.2-1.3); CARBON DIOXIDE 24 mmol/L (22-30); GFR AFRICAN-AMERICAN > 60
[2016-09-05 13:23] LABS: ALB/GLOB RATIO 1.1 (1.0-2.1); ALKALINE PHOSPHATASE 64 U/L (38-126); ALT/SGPT 20 U/L (9-52); BLOOD UREA NITROGEN 3 mg/dL (7-17); CALCIUM 8.3 mg/dl (8.6-10.4); GLUCOSE,RANDOM 76 mg/dL (65-105); TOTAL PROTEIN 6.2 g/dL (6.3-8.3)
[2016-09-05] MEDS ORDERED: Potassium Chloride 20 mEq ER Tab PO STA (14:21)
--- NOTE | 2016-09-05 14:34 | CP.PCM.PN ---
Subjective - Date & Time of Evaluation Date of Evaluation: 09/05/16 Time of Evaluation: 14:00 - Subjective Subjective: EXHAUST TENDER NOTES SMA 7 DONE TODAY K- 2.6 , PT RECEIVED 20 MEQ KCL AT 10 PM AND WILL GIVE [address] LANTIGUA MADE AWARE OF K LEVEL STATES OK FOR DISCHARGE AND HE WILL REPLACE WITH KCL AT MI Objective - Vital Signs/Intake and Output Vital Signs (last 24 hours): Temp Pulse Resp BP Pulse Ox 97.8 F 80 20 108/66 96 09/05/16 08:16 09/05/16 08:16 09/05/16 08:16 09/05/16 08:16 09/05/16 08:16 Intake and Output: 09/05/16 09/05/16 06:59 18:59 Intake Total 1170 Balance 1170 - Medications Medications: Current Medications Ceftriaxone Sodium 1 gm/ (Sodium Chloride) 100 mls @ 100 mls/hr IVPB DAILY@ 1400 [facility] Last Admin: 09/04/16 14:02 Dose: 100 mls/hr Metronidazole (Flagyl) 100 mls @ 100 mls/hr IVPB Q8H [facility] Last Admin: 09/05/16 11:47 Dose: 100 mls/hr Sodium Chloride (Sodium Chloride 0.9%) 1,000 mls @ 40 mls/hr IV .Q24H [facility] Last Admin: 09/05/16 11:42 Dose: 40 mls/hr Pantoprazole Sodium (Protonix Inj) 40 mg IVP DAILY [facility] Last Admin: 09/05/16 11:41 Dose: 40 mg Potassium Chloride (Potassium Chloride Oral Soln) 20 meq PO DAILY [facility] - Labs Labs: 09/04/16 10:50 09/05/16 13:07 PT 12.2 SECONDS (9.7-12.2) 09/02/16 04:52 INR 1.1 09/02/16 04:52 APTT 32 SECONDS (21-34) 09/02/16 04:52
[2016-09-05] MEDS ORDERED: Potassium Chloride 20 mEq/15 ml LIQ UD PO STA (14:37)
[2016-09-05 16:54] VITALS: BP 129/75; PULSE 96; RESP 19; TEMP 98.1
[2016-09-06] MEDS ORDERED: Potassium Chloride 20 mEq/15 ml LIQ UD PO SCH (10:00)
== END 2016-09-05 18:30 | DRG 378 ==
LOC: C.ER 04:11 → MERGE 10:25 → C.9I 10:25 → C.3T 09-03 21:54
PROVIDERS: ADMIT Family Medicine; ATTEND Family Medicine
DX: K92.1 Melena (principal); K52.9 Noninfective gastroenteritis and colitis, unspecified; I82.5Z9 Chronic embolism and thrombosis of unspecified deep veins of unspecified distal lower extremity; I73.9 Peripheral vascular disease, unspecified; I10 Essential (primary) hypertension; E87.6 Hypokalemia; M19.90 Unspecified osteoarthritis, unspecified site; Z89.621 Acquired absence of right hip joint; Z87.81 Personal history of (healed) traumatic fracture; Z91.81 History of falling; Z88.8 Allergy status to other drugs, medicaments and biological substances; Z79.01 Long term (current) use of anticoagulants